=== PATIENT | male | born 1975 | race American Indian/Alaskan Native ===

== ENCOUNTER 2019-09-06 02:22 | Emergency (ER) | payer SELFPAY ==
[2019-09-06] MEDS ORDERED: IBUPROFEN 600 MG TAB PO ONE (03:23)
[2019-09-06] MEDS ORDERED: CYCLOBENZAPRINE 10 MG TAB PO ONE (03:23)
--- NOTE | 2019-09-06 03:34 | Emergency Department Report ---
ED General Adult HPI - General Chief complaint: Dyspnea/Respdistress Stated complaint: RIA Source: patient, EMS Mode of arrival: Ambulatory Limitations: No Limitations - History of Present Illness Initial comments: Patient is a 43-year-old -L[place] male with a history of hypertension, migraine headaches, asthma and chronic low back pain who presents to the ED with complaint of acute exacerbation of his chronic low back pain for the last 2 days worse in the last 6 hours. Patient states that the pain is sharp, constant and is worse with any activity. Patient also states that the pain does not radiate to his lower extremities bilaterally. Patient states that he has not taken any medications prior to arrival in the ED. Patient denies dizziness, syncope, chest pain, shortness of breath, heavy lifting, fall, hematuria, dysuria, numbness and tingling or weakness of upper and lower extremities bilaterally, urinary or bowel incontinence or saddle paresthesia. MD Complaint: Low back pain -: Sudden, days(s) (2) Location: back (lower) Radiation: non-radiation Severity scale (0 -10): 7 Quality: aching, sharp Consistency: constant Improves with: none Worsens with: movement Associated Symptoms: denies other symptoms. denies: confusion, fever/chills, headaches, malaise, nausea/vomiting, shortness of breath Treatments Prior to Arrival: none - Related Data Home Medications Medication Instructions Recorded Confirmed Last Taken Albuterol Sulfate [Albuterol 0.63%] 0.63 mg IH TID PRN 01/23/13 01/23/13 12/16/12 Previous Rx's Medication Instructions Recorded Last Taken Type Albuterol Sulfate [Ventolin HFA] 2 puff IH Q4H PRN #1 hfa.aer.ad 01/23/13 Unknown Rx Azithromycin [Zithromax Z-LUCIA] 250 mg PO DAILY #6 tab 01/23/13 Unknown Rx Hydrocodone Bit/Homatrop Me-Br 5 ml PO Q4H PRN #80 ml 01/23/13 Unknown Rx [Hydrocodone-Homatropine Syr 5-1.5 mg/5ml] Prednisone 60 mg PO QDAY #15 tablet 01/23/13 Unknown Rx Cyclobenzaprine [Flexeril] 10 mg PO Q8H PRN #21 tablet 09/06/19 Unknown Rx Ibuprofen [Motrin] 800 mg PO Q8HR PRN #30 tablet 09/06/19 Unknown Rx Allergies Allergy/AdvReac Type Severity Reaction Status Date / Time acetaminophen [From Tylenol] Allergy Rash Verified 09/06/19 02:27 latex Allergy Rash Verified 09/06/19 02:27 Penicillins Allergy Rash Verified 01/23/13 06:03 shellfish derived Allergy Unknown Verified 09/06/19 02:27 shrimp Allergy Vomiting Uncoded 01/23/13 06:03 ED Review of Systems ROS: Stated complaint: RIA Other details as noted in HPI Constitutional: denies: chills, fever Eyes: denies: eye pain, eye discharge, vision change ENT: denies: ear pain, throat pain Respiratory: denies: cough, shortness of breath, wheezing Cardiovascular: denies: chest pain, palpitations Endocrine: no symptoms reported Gastrointestinal: denies: abdominal pain, nausea, diarrhea Genitourinary: denies: urgency, dysuria Musculoskeletal: back pain (lower back). denies: joint swelling, arthralgia Skin: denies: rash, lesions Neurological: denies: headache, weakness, paresthesias Psychiatric: denies: anxiety, depression Hematological/Lymphatic: denies: easy bleeding, easy bruising ED Past Medical Hx - Past Medical History Previous Medical History?: Yes Hx Hypertension: Yes Hx Headaches / Migraines: Yes Hx Asthma: Yes - Surgical History Past Surgical History?: No - Social History Smoking Status: Never Smoker Substance Use Type: None - Medications Home Medications: Home Medications Medication Instructions Recorded Confirmed Last Taken Type Albuterol Sulfate [Albuterol 0.63%] 0.63 mg IH TID PRN 01/23/13 01/23/13 12/16/12 History Albuterol Sulfate [Ventolin HFA] 2 puff IH Q4H PRN #1 hfa.aer.ad 01/23/13 Unknown Rx Azithromycin [Zithromax Z-LUCIA] 250 mg PO DAILY #6 tab 01/23/13 Unknown Rx Hydrocodone Bit/H[place] Me-Br 5 ml PO Q4H PRN #80 ml 01/23/13 Unknown Rx [Hydrocodone-Homatropine Syr 5-1.5 mg/5ml] Prednisone 60 mg PO QDAY #15 tablet 01/23/13 Unknown Rx Cyclobenzaprine [Flexeril] 10 mg PO Q8H PRN #21 tablet 09/06/19 Unknown Rx Ibuprofen [Motrin] 800 mg PO Q8HR PRN #30 tablet 09/06/19 Unknown Rx ED Physical Exam - General Limitations: No Limitations General appearance: alert, in no apparent distress - Head Head exam: Present: atraumatic, normocephalic, normal inspection - Eye Eye exam: Present: normal appearance, PERRL, EOMI Pupils: Present: normal accommodation - ENT ENT exam: Present: normal exam, normal orophraynx, mucous membranes moist, TM's normal bilaterally, normal external ear exam - Neck Neck exam: Present: normal inspection, full ROM - Respiratory Respiratory exam: Present: normal lung sounds bilaterally. Absent: respiratory distress, wheezes, chest wall tenderness, accessory muscle use - Cardiovascular Cardiovascular Exam: Present: regular rate, normal rhythm, normal heart sounds. Absent: systolic murmur, diastolic murmur, rubs, gallop - GI/Abdominal GI/Abdominal exam: Present: soft, normal bowel sounds. Absent: tenderness, guarding, hyperactive bowel sounds, hypoactive bowel sounds - Extremities Exam Extremities exam: Present: normal inspection, full ROM, normal capillary refill - Back Exam Back exam: Present: normal inspection, full ROM, tenderness (Palpable lumbosacral paraspinal musculoskeletal tenderness), muscle spasm, paraspinal tenderness. Absent: CVA tenderness (L) - Neurological Exam Neurological exam: Present: alert, oriented X3, CN II-XII intact, normal gait, reflexes normal - Psychiatric Psychiatric exam: Present: normal affect, normal mood - Skin Skin exam: Present: warm, dry, intact, normal color. Absent: rash ED Course Vital Signs 09/06/19 02:23 Temperature 97.7 F Pulse Rate 89 Respiratory 18 Rate Blood Pressure 104/60 O2 Sat by Pulse 99 Oximetry ED Medical Decision Making - Medical Decision Making This is a 43-year-old -[place] male with a history of hypertension, migraine headaches, asthma and chronic low back pain who presents to the ED with complaint of acute exacerbation of his chronic low back pain for the last 2 days worse in the last 6 hours. Patient states that the pain is sharp, constant and is worse with any activity. Patient also states that the pain does not radiate to his lower extremities bilaterally. Patient states that he has not taken any medications prior to arrival in the ED. In the ED, patient is alert and oriented x3 and is not in distress. Patient listening to music in the room and in no distress. Patient was treated for pain in the ED with ibuprofen, and was discharged home on a prescription for ibuprofen and was advised to follow-up with his primary care physician in 5 to 7 days for reevaluation or return to the ED immediately if symptoms get worse. - Differential Diagnosis chronic back pain; Muscle spasm; Muscle strain Critical care attestation.: If time is entered above; I have spent that time in minutes in the direct care of this critically ill patient, excluding procedure time. ED Disposition Clinical Impression: Acute exacerbation of chronic low back pain, Spasm of muscle of lower back Disposition: - TO HOME OR SELFCARE Is pt being admited?: No Does the pt Need Aspirin: No Condition: Stable Instructions: Muscle Spasm (ED), Chronic Back Pain (ED) Additional Instructions: Take medication with food, drink plenty of fluids and follow-up with your primary care physician in 5 to 7 days for reevaluation. Return to the ED immediately if symptoms get worse. Prescriptions: Cyclobenzaprine [Flexeril] 10 mg PO Q8H PRN #21 tablet PRN Reason: Muscle Spasm Ibuprofen [Motrin] 800 mg PO Q8HR PRN #30 tablet PRN Reason: Pain , Severe (7-10) Referrals: [facility] [Provider Group] - 3-5 Days Time of Disposition: 03:38 Print Language: EQUATORIAL GUINEAN
[2019-09-06 04:34] VITALS: BP 122/53
== END 2019-09-06 03:55 | disposition home or self-care (01) ==
LOC: ED 02:22
DX: M62.830 Muscle spasm of back (principal); I10 Essential (primary) hypertension; J45.909 Unspecified asthma, uncomplicated; G43.909 Migraine, unspecified, not intractable, without status migrainosus; Z88.0 Allergy status to penicillin; Z88.6 Allergy status to analgesic agent; Z91.013 Allergy to seafood

== ENCOUNTER 2020-02-03 02:10 | Emergency (ER) | payer SELFPAY ==
[2020-02-03 02:27] VITALS: BP 107/74
--- NOTE | 2020-02-03 06:07 | Emergency Department Report ---
ED Back Pain/Injury HPI - General Chief Complaint: Back Pain/Injury Stated Complaint: BACK PAIN Time Seen by Provider: 02/03/20 06:01 Source: patient Limitations: No Limitations - History of Present Illness Initial Comments: Patient 44-year-old male who presents for bilateral low back pain times yesterday. Patient states he woke up with back pain. Denies fall injury or trauma. Pain pain is described as aching soreness exacerbated by bending and twisting. There is no numbness or tingling. No loss or decrease in bowel or bladder function. Patient remains amatory with steady gait Complaint: back pain, back injury - Related Data Home Medications Medication Instructions Recorded Confirmed Last Taken Albuterol Sulfate [Albuterol 0.63%] 0.63 mg IH TID PRN 01/23/13 01/23/13 12/16/12 Previous Rx's Medication Instructions Recorded Last Taken Type Albuterol Sulfate [Ventolin HFA] 2 puff IH Q4H PRN #1 hfa.aer.ad 01/23/13 Unknown Rx Azithromycin [Zithromax Z-LUCIA] 250 mg PO DAILY #6 tab 01/23/13 Unknown Rx Hydrocodone Bit/Homatrop Me-Br 5 ml PO Q4H PRN #80 ml 01/23/13 Unknown Rx [Hydrocodone-Homatropine Syr 5-1.5 mg/5ml] Prednisone 60 mg PO QDAY #15 tablet 01/23/13 Unknown Rx Cyclobenzaprine [Flexeril] 10 mg PO Q8H PRN #21 tablet 09/06/19 Unknown Rx Ibuprofen [Motrin] 800 mg PO Q8HR PRN #30 tablet 09/06/19 Unknown Rx Cyclobenzaprine [Flexeril] 10 mg PO TID PRN #30 tab 02/03/20 Unknown Rx Menthol/Camphor [[place] 1 applicatio TP QID PRN #1 tube 02/03/20 Unknown Rx Ointment] Naproxen 500 mg PO BID PRN #30 tablet 02/03/20 Unknown Rx Allergies Allergy/AdvReac Type Severity Reaction Status Date / Time acetaminophen [From Tylenol] Allergy Rash Verified 09/06/19 02:27 latex Allergy Rash Verified 09/06/19 02:27 Penicillins Allergy Rash Verified 01/23/13 06:03 shellfish derived Allergy Unknown Verified 09/06/19 02:27 shrimp Allergy Vomiting Uncoded 01/23/13 06:03 ED Review of Systems ROS: Stated complaint: BACK PAIN Other details as noted in HPI Constitutional: denies: chills, fever Eyes: denies: eye pain, eye discharge, vision change ENT: denies: ear pain, throat pain Respiratory: denies: cough, shortness of breath, wheezing Cardiovascular: as per HPI Endocrine: no symptoms reported Gastrointestinal: denies: abdominal pain, nausea, diarrhea Genitourinary: denies: urgency, dysuria Musculoskeletal: back pain, arthralgia Skin: denies: rash, lesions Neurological: denies: headache, weakness, paresthesias Psychiatric: as per HPI Hematological/Lymphatic: denies: easy bleeding, easy bruising ED Past Medical Hx - Past Medical History Previous Medical History?: Yes Hx Hypertension: Yes Hx Headaches / Migraines: Yes Hx Asthma: Yes - Surgical History Past Surgical History?: No - Social History Smoking Status: Never Smoker Substance Use Type: None - Medications Home Medications: Home Medications Medication Instructions Recorded Confirmed Last Taken Type Albuterol Sulfate [Albuterol 0.63%] 0.63 mg IH TID PRN 01/23/13 01/23/13 12/16/12 History Albuterol Sulfate [Ventolin HFA] 2 puff IH Q4H PRN #1 hfa.aer.ad 01/23/13 Unknown Rx Azithromycin [Zithromax Z-LUCIA] 250 mg PO DAILY #6 tab 01/23/13 Unknown Rx Hydrocodone Bit/Homatrop Me-Br 5 ml PO Q4H PRN #80 ml 01/23/13 Unknown Rx [Hydrocodone-Homatropine Syr 5-1.5 mg/5ml] Prednisone 60 mg PO QDAY #15 tablet 01/23/13 Unknown Rx Cyclobenzaprine [Flexeril] 10 mg PO Q8H PRN #21 tablet 09/06/19 Unknown Rx Ibuprofen [Motrin] 800 mg PO Q8HR PRN #30 tablet 09/06/19 Unknown Rx Cyclobenzaprine [Flexeril] 10 mg PO TID PRN #30 tab 02/03/20 Unknown Rx Menthol/Camphor [[place] 1 applicatio TP QID PRN #1 tube 02/03/20 Unknown Rx Ointment] Naproxen 500 mg PO BID PRN #30 tablet 02/03/20 Unknown Rx ED Physical Exam - General Limitations: No Limitations General appearance: alert, in no apparent distress - Head Head exam: Present: atraumatic, normocephalic - Eye Eye exam: Present: normal appearance, EOMI Pupils: Present: normal accommodation - ENT ENT exam: Present: normal exam - Neck Neck exam: Present: normal inspection. Absent: tenderness - Respiratory Respiratory exam: Present: normal lung sounds bilaterally. Absent: respiratory distress, wheezes, stridor - Cardiovascular Cardiovascular Exam: Present: regular rate, normal rhythm, normal heart sounds. Absent: systolic murmur, diastolic murmur, rubs, gallop - GI/Abdominal GI/Abdominal exam: Present: soft, normal bowel sounds. Absent: distended, tenderness, guarding, rebound, rigid, bruit, hernia - Rectal Rectal exam: Present: deferred - Extremities Exam Extremities exam: Present: normal inspection, full ROM. Absent: tenderness - Back Exam Back exam: Present: normal inspection, full ROM, tenderness, muscle spasm, paraspinal tenderness. Absent: CVA tenderness (R), CVA tenderness (L), vertebral tenderness - Neurological Exam Neurological exam: Present: alert, oriented X3, CN II-XII intact, normal gait, reflexes normal. Absent: motor sensory deficit - Expanded Neurological Exam Expanded Patient oriented to: Present: person, place, time Speech: Present: fluid speech Motor strength exam: RUE: 5, LUE: 5, RLE: 5, LLE: 5 DTR: ankle (R): 2+, ankle (L): 2+ Best Eye Response ([place]): (4) open spontaneously Best Motor Response ([place]): (6) obeys commands Best Verbal Response ([place]): (5) oriented [place] Total: 15 - Psychiatric Psychiatric exam: Present: normal affect, normal mood - Skin Skin exam: Present: warm, dry, intact, normal color. Absent: rash ED Course Vital Signs 02/03/20 02:25 Temperature 98.3 F Pulse Rate 78 Respiratory 18 Rate Blood Pressure 107/74 O2 Sat by Pulse 96 Oximetry ED Medical Decision Making - Medical Decision Making This is a low back strain. There are no neuro deficits, there has been no fall injury or trauma, there is no dysuria frequency or hematuria, no history of renal stones. This is exacerbation of a previous back injury. Plan NSAIDs and muscle relaxants analgesic balm follow-up with primary care doctor in 2 to 3 days. Patient verbalized agreement and understanding with discharge plan. Patient DC'd home in stable condition at this time. Critical care attestation.: If time is entered above; I have spent that time in minutes in the direct care of this critically ill patient, excluding procedure time. ED Disposition Clinical Impression: Low back strain Qualifiers: Encounter type: subsequent encounter Qualified Code(s): S39.012D - Strain of muscle, fascia and tendon of lower back, subsequent encounter Disposition: DC-01 TO HOME OR SELFCARE Is pt being admited?: No Does the pt Need Aspirin: No Condition: Stable Instructions: Muscle Strain (ED), Low Back Strain (ED), Core Strengthening Exercises (GEN) Prescriptions: Cyclobenzaprine [Flexeril] 10 mg PO TID PRN #30 tab PRN Reason: Muscle Spasm Naproxen 500 mg PO BID PRN #30 tablet PRN Reason: pain Menthol/Camphor [[place] Ointment] 1 applicatio TP QID PRN #1 tube PRN Reason: pain Referrals: TATA YEAGER MD [Referring] - 3-5 Days Forms: Work/School Release Form(ED) Time of Disposition: 06:11
== END 2020-02-03 06:17 | disposition home or self-care (01) ==
LOC: ED 02:10
DX: S39.012D Strain of muscle, fascia and tendon of lower back, subsequent encounter (principal); J45.909 Unspecified asthma, uncomplicated; G43.909 Migraine, unspecified, not intractable, without status migrainosus; I10 Essential (primary) hypertension; Z91.013 Allergy to seafood; Z88.0 Allergy status to penicillin; Z88.6 Allergy status to analgesic agent; Z79.899 Other long term (current) drug therapy; Z91.041 Radiographic dye allergy status; Y92.89 Other specified places as the place of occurrence of the external cause
CPT/HCPCS: 99283

== ENCOUNTER 2020-04-09 21:49 | Emergency (ER) | payer SELFPAY ==
[2020-04-10] MEDS ORDERED: ONDANSETRON 4 MG/2 ML INJ IV ONE (03:18)
[2020-04-10] MEDS ORDERED: KETOROLAC 30 MG/1 ML INJ IV ONE (03:18)
[2020-04-10] MEDS ORDERED: SODIUM CHLORIDE 0.9% 1000 ML 1,000 ML IV ONE (03:18)
[2020-04-10] MEDS ORDERED: dexAMETHasone 4 MG/ML VIAL IV ONE (03:19)
--- NOTE | 2020-04-10 03:23 | Emergency Department Report ---
ED General Adult HPI - General Chief complaint: Extremity Injury, Lower Stated complaint: ASTHMA/BACK PAIN Time Seen by Provider: 04/10/20 03:09 Source: patient Mode of arrival: Ambulatory Limitations: No Limitations - History of Present Illness Initial comments: Patient is a 44-year-old male presents emergency room complaints of lower back pain that began 4 days ago. He states that the pain radiates to his abdomen and he has generalized abdominal pain. He denies any fall or injury. 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 He denies any fever, nausea, vomiting, diarrhea, urinary symptoms, hematochezia, hematemesis, melena. He has a past medical history of asthma and seizures. He has an allergy to penicillin, Tylenol, latex, shellfish. - Related Data Home Medications Medication Instructions Recorded Confirmed Last Taken Albuterol Sulfate [Albuterol 0.63%] 0.63 mg IH TID PRN 01/23/13 01/23/13 12/16/12 Previous Rx's Medication Instructions Recorded Last Taken Type Albuterol Sulfate [Ventolin HFA] 2 puff IH Q4H PRN #1 hfa.aer.ad 01/23/13 U nknown Rx Azithromycin [Zithromax Z-LUCIA] 250 mg PO DAILY #6 tab 01/23/13 Unknown Rx Hydrocodone Bit/Homatrop Me-Br 5 ml PO Q4H PRN #80 ml 01/23/13 Unknown Rx [Hydrocodone-Homatropine Syr 5-1.5 mg/5ml] Prednisone 60 mg PO QDAY #15 tablet 01/23/13 Unknown Rx Cyclobenzaprine [Flexeril] 10 mg PO Q8H PRN #21 tablet 09/06/19 Unknown Rx Ibuprofen [Motrin] 800 mg PO Q8HR PRN #30 tablet 09/06/19 Unknown Rx Cyclobenzaprine [Flexeril] 10 mg PO TID PRN #30 tab 02/03/20 Unknown Rx Menthol/Camphor [[employer] [place] 1 applicatio TP QID PRN #1 tube 02/03/20 Unknown Rx Ointment] Naproxen 500 mg PO BID PRN #30 tablet 02/03/20 Unknown Rx Albuterol Sulfate [Proventil Hfa] 6.7 gm IH TID PRN #1 hfa.aer.ad 04/10/20 Unknown Rx Doxycycline Hyclate [Doxycycline 100 mg PO BID 7 Days #14 tab 04/10/20 Unknown Rx Hyclate TAB] Naproxen 500 mg PO BID PRN #20 tablet 04/10/20 Unknown Rx methOCARBAMOL [Robaxin TAB] 500 mg PO BID PRN #20 tab 04/10/20 Unknown Rx Allergies Allergy/AdvReac Type Severity Reaction Status Date / Time acetaminophen [From Tylenol] Allergy Rash Verified 09/06/19 02:27 latex Allergy Rash Verified 09/06/19 02:27 Penicillins Allergy Rash Verified 01/23/13 06:03 shellfish derived Allergy Unknown Verified 09/06/19 02:27 ketorolac [From Toradol] AdvReac Headache Verified 04/10/20 03:51 metoclopramide [From Reglan] AdvReac Headache Verified 04/10/20 03:51 shrimp Allergy Vomiting Uncoded 01/23/13 06:03 ED Review of Systems ROS: Stated complaint: ASTHMA/BACK PAIN Other details as noted in HPI Comment: All other systems reviewed and negative ED Past Medical Hx - Past Medical History Previous Medical History?: Yes Hx Hypertension: Yes Hx Headaches / Migraines: Yes Hx Asthma: Yes - Surgical History Past Surgical History?: No - Social History Smoking Status: Never Smoker Substance Use Type: None - Medications Home Medications: Home Medications Medication Instructions Recorded Confirmed Last Taken Type Albuterol Sulfate [Albuterol 0.63%] 0.63 mg IH TID PRN 01/23/13 01/23/13 12/16/12 History Albuterol Sulfate [Ventolin HFA] 2 puff IH Q4H PRN #1 hfa.aer.ad 01/23/13 Unknown Rx Azithromycin [Zithromax Z-LUCIA] 250 mg PO DAILY #6 tab 01/23/13 Unknown Rx Hydrocodone Bit/Homatrop Me-Br 5 ml PO Q4H PRN #80 ml 01/23/13 Unknown Rx [Hydrocodone-Homatropine Syr 5-1.5 mg/5ml] Prednisone 60 mg PO QDAY #15 tablet 01/23/13 Unknown Rx Cyclobenzaprine [Flexeril] 10 mg PO Q8H PRN #21 tablet 09/06/19 Unknown Rx Ibuprofen [Motrin] 800 mg PO Q8HR PRN #30 tablet 09/06/19 Unknown Rx Cyclobenzaprine [Flexeril] 10 mg PO TID PRN #30 tab 02/03/20 Unknown Rx Menthol/Camphor [[employer] [place] 1 applicatio TP QID PRN #1 tube 02/03/20 Unknown Rx Ointment] Naproxen 500 mg PO BID PRN #30 tablet 02/03/20 Unknown Rx Albuterol Sulfate [Proventil Hfa] 6.7 gm IH TID PRN #1 hfa.aer.ad 04/10/20 Unknown Rx Doxycycline Hyclate [Doxycycline 100 mg PO BID 7 Days #14 tab 04/10/20 Unknown Rx Hyclate TAB] Naproxen 500 mg PO BID PRN #20 tablet 04/10/20 Unknown Rx methOCARBAMOL [Robaxin TAB] 500 mg PO BID PRN #20 tab 04/10/20 Unknown Rx ED Physical Exam - General Limitations: No Limitations General appearance: alert, in no apparent distress - Head Head exam: Present: atraumatic, normocephalic - Eye Eye exam: Present: normal appearance - ENT ENT exam: Present: mucous membranes moist - Respiratory Respiratory exam: Present: normal lung sounds bilaterally. Absent: respiratory distress, wheezes, rales, rhonchi, stridor, chest wall tenderness, accessory m uscle use, decreased breath sounds, prolonged expiratory - Cardiovascular Cardiovascular Exam: Present: regular rate, normal rhythm, normal heart sounds. Absent: systolic murmur, diastolic murmur, rubs, gallop - GI/Abdominal GI/Abdominal exam: Present: soft, tenderness (generalized upper abd ttp), normal bowel sounds. Absent: distended, guarding, rebound, rigid - Back Exam Back exam: Present: normal inspection, full ROM. Absent: CVA tenderness (R), CVA tenderness (L), paraspinal tenderness, vertebral tenderness - Neurological Exam Neurological exam: Present: alert, oriented X3 - Psychiatric Psychiatric exam: Present: normal affect, normal mood - Skin Skin exam: Present: warm, dry, intact ED Course Vital Signs 04/09/20 22:57 Temperature 98.0 F Pulse Rate 101 H Respiratory 17 Rate Blood Pressure 160/76 O2 Sat by Pulse 96 Oximetry ED Medical Decision Making - Lab Data Result diagrams: 04/10/20 03:35 04/10/20 03:35 Lab Results 04/10/20 04/10/20 04/10/20 Range/Units 03:35 03:35 04:38 WBC 5.7 (4.5-11.0) K/mm3 RBC 4.94 (3.65-5.03) M/mm3 Hgb 13.6 (11.8-15.2) gm/dl Hct 41.2 (35.5-45.6) % MCV 84 (84-94) fl MCH 28 (28-32) pg MCHC 33 (32-34) % RDW 15.2 (13.2-15.2) % Plt Count 174 (140-440) K/mm3 Lymph % (Auto) 32.7 (13.4-35.0) % [place] % (Auto) 13.8 H (0.0-7.3) % Eos % (Auto) 7.5 H (0.0-4.3) % Baso % (Auto) 0.6 (0.0-1.8) % Lymph # (Auto) 1.9 (1.2-5.4) K/mm3 [place] # (Auto) 0.8 (0.0-0.8) K/mm3 Eos # (Auto) 0.4 (0.0-0.4) K/mm3 Baso # (Auto) 0.0 (0.0-0.1) K/mm3 Seg Neutrophils % 45.4 (40.0-70.0) % Seg Neutrophils # 2.6 (1.8-7.7) K/mm3 Sodium 136 L (137-145) mmol/L Potassium 3.9 (3.6-5.0) mmol/L Chloride 106.0 (98-107) mmol/L Carbon Dioxide 25 (22-30) mmol/L Anion Gap 9 mmol/L BUN 11 (9-20) mg/dL Creatinine 0.8 (0.8-1.3) mg/dL Estimated GFR > 60 ml/min BUN/Creatinine Ratio 14 % Glucose 102 H (75-100) mg/dL Calcium 8.3 L (8.4-10.2) mg/dL Total Bilirubin 0.30 (0.1-1.2) mg/dL AST 12 (5-40) units/L ALT 14 (7-56) units/L Alkaline Phosphatase 141 H (35-129) units/L Total Protein 5.8 L (6.3-8.2) g/dL Albumin 3.5 L (3.9-5) g/dL Albumin/Globulin Ratio 1.5 % Lipase 14 (13-60) units/L Urine Color Yellow (Yellow) Urine Turbidity Clear (Clear) Urine pH 5.0 (5.0-7.0) Ur Specific [place] 1.024 (1.003-1.030) Urine Protein <15 mg/dl (Negative) mg/dL Urine Glucose (UA) Neg (Negative) mg/dL Urine Ketones Neg (Negative) mg/dL Urine Blood Neg (Negative) Urine Nitrite Neg (Negative) Urine Bilirubin Neg (Negative) Urine Urobilinogen 4.0 (<2.0) mg/dL Ur Leukocyte Esterase Mod (Negative) Urine WBC (Auto) 57.0 H (0.0-6.0) /HPF Urine RBC (Auto) 4.0 (0.0-6.0) /HPF U Epithel Cells (Auto) 2.0 (0-13.0) /HPF Urine Bacteria (Auto) 1+ (Negative) /HPF Hyaline Casts 2 /LPF Urine Mucus Few /HPF - Radiology Data Radiology results: report reviewed Ordering Physician: AMARI MARTIN Date of Service: 04/10/20 Procedure(s): CT abdomen pelvis w con Accession Number(s): [id number] cc: AMARI MARTIN CT abdomen pelvis w con INDICATION: Pt complains of lower back pain with "Generalized" abd pain x 4 days.. COMPARISON: None TECHNIQUE: Abdominal and pelvic CT exam performed. All CT scans at this location are performed using CT dose reduction for ALARA by means of automated exposure control. FINDINGS: CT ABDOMEN and PELVIS: Lung Bases: No significant abnormality. Liver: No significant abnormality. Biliary: No significant abnormality. Spleen: No significant abnormality. Pancreas: No significant abnormality. Adrenals: No significant abnormality. Kidneys: No significant abnormality. Lymphatics: No lymphadenopathy. Vasculature: No significant abnormality. Bowel: No significant abnormality. Normal appendix. Pelvis: No significant abnormality. Osseous Structures: No aggressive osseous lesion. Additional Findings: None IMPRESSION: 1. No significant abnormality of the abdomen or pelvis. Signer Name: Keven Rojas MD Signed: 04/10/2020 5:06 AM Workstation Name: [id number] Transcribed By: JOSSIE Dictated By: Keven Rojas MD Electronically Authenticated By: Keven Rojas MD Signed Date/Time: 04/10/20505 DD/ 3 TD/TT: - Medical Decision Making Patient is a 44-year-old male presents emergency room complaints of lower back pain that began 4 days ago. He states that the pain radiates to his abdomen and he has generalized abdominal pain. He denies any fall or injury. 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 He denies any fever, nausea, vomiting, diarrhea, urinary symptoms, hematochezia, hematemesis, melena. He has a past medical history of asthma and seizures. He has an allergy to penicillin, Tylenol, latex, shellfish. VSS. on exam: Generalized upper abdominal tenderness on exam, no guarding, no rebound, no rigidity, no peritoneal signs, normal bowel sounds, no midline or paraspinal C-spine, T-spine, L-spine tenderness palpation, no step-offs, no deformities, no focal neuro deficits. Labs with mild elevation of alk phos, otherwise. UA shows evidence of UTI with white blood cells and moderate leukocyte esterase, patient given 1 g ceftriaxone while in the ED. CT abdomen pelvis with IV contrast 1. No significant abnormality of the abdomen or pelvis. Patient given medications while in the emergency department and symptoms improved and he was feeling much better and ready to go home. Patient is requesting a refill of his albuterol inhaler for his chronic asthma, he has no wheezing on exam, no signs of acute asthma exacerbation today. advised pt Please take medication as prescribed. Do not drive or operate machinery while taking muscle relaxer. Increase your water intake over the next several days. May use ice pack, heating pad, rest, and epsom salt bath. Follow-up with your primary care doctor and have your urine retested for clearance of bacteria. Return to emergency room for any new or worsening symptoms. - Differential Diagnosis Bulging disc, DDD, sciatica, colitis, diverticulitis, UTI, nephrolithiasis Critical care attestation.: If time is entered above; I have spent that time in minutes in the direct care of this critically ill patient, excluding procedure time. ED Disposition Clinical Impression: Back pain Qualifiers: Back pain location: low back pain Chronicity: acute Back pain laterality: bilateral Sciatica presence: without sciatica Qualified Code(s): M54.5 - Low back pain Abdominal pain Qualifiers: Abdominal location: generalized Qualified Code(s): R10.84 - Generalized abdominal pain UTI (urinary tract infection) Qualifiers: Urinary tract infection type: site unspecified Hematuria presence: without hematuria Qualified Code(s): N39.0 - Urinary tract infection, site not specified Disposition: TO HOME OR SELFCARE Is pt being admited?: No Does the pt Need Aspirin: No Condition: Stable Instructions: Urinary Tract Infection, Adult Additional Instructions: Please take medication as prescribed. Do not drive or operate machinery while taking muscle relaxer. Increase your water intake over the next several days. May use ice pack, heating pad, rest, and epsom salt bath. Follow-up with your primary care doctor and have your urine retested for clearance of bacteria. Return to emergency room for any new or worsening symptoms. Prescriptions: Doxycycline Hyclate [Doxycycline Hyclate TAB] 100 mg PO BID 7 Days #14 tab Naproxen 500 mg PO BID PRN #20 tablet PRN Reason: pain Albuterol Sulfate [Proventil Hfa] 6.7 gm IH TID PRN #1 hfa.aer.ad PRN Reason: Wheezing methOCARBAMOL [Robaxin TAB] 500 mg PO BID PRN #20 tab PRN Reason: pain Referrals: PRIMARY CAREMD [Primary Care Provider] - 3-5 Days CORRY STAHL MD [Staff Physician] - 3-5 Days [facility] [Provider Group] - 3-5 Days [facility], [LAB/CONTRACT] - 3-5 Days Time of Disposition: 05:14 Print Language: ALBANIAN
[2020-04-10 03:53] LABS: Basophils % (Auto) 0.6 % (0.0-1.8); Eosinophils # (Auto) 0.4 K/mm3 (0.0-0.4); Eosinophils % (Auto) 7.5 % (0.0-4.3); Hematocrit 41.2 % (35.5-45.6); Hemoglobin 13.6 gm/dl (11.8-15.2); Lymphocytes # (Auto) 1.9 K/mm3 (1.2-5.4); Lymphocytes % (Auto) 32.7 % (13.4-35.0); Mean Corpuscular HGB Conc 33 % (32-34); Mean Corpuscular Volume 84 fl (84-94); Monocytes # (Auto) 0.8 K/mm3 (0.0-0.8); Monocytes % (Auto) 13.8 % (0.0-7.3); Platelet Count 174 K/mm3 (140-440); Red Blood Count 4.94 M/mm3 (3.65-5.03); Red Cell Distribution Width 15.2 % (13.2-15.2)
[2020-04-10] MEDS ORDERED: IBUPROFEN 800 MG TAB PO ONE (03:55)
[2020-04-10] MEDS: fentaNYL 100 MCG/2 ML INJ IV ONE ×2 (04:07→04:20)
[2020-04-10 04:14] LABS: Alanine Aminotransferase 14 units/L (7-56); Albumin 3.5 g/dL (3.9-5); BUN/Creatinine Ratio 14; Blood Urea Nitrogen 11 mg/dL (9-20); Calcium 8.3 mg/dL (8.4-10.2); Hemolysis Index 8
[2020-04-10 04:52] LABS: Bacteria,Urine 1+ /HPF (Negative); Bilirubin,Urine NEG (Negative); Blood,Urine NEG (Negative); Color,Urine Yellow (Yellow); Hyaline Casts,Urine 2 /LPF; Mucus,Urine FEW /HPF; Protein,Urine <15 mg/dL mg/dL (Negative)
[2020-04-10] MEDS ORDERED: cefTRIAXone/NS 1 GM/50 ML 1 GM/50 ML BAG IV ONE (04:59)
--- NOTE | 2020-04-10 05:10 | Cat Scan Report ---
CT abdomen pelvis w con INDICATION: Pt complains of lower back pain with "Generalized" abd pain x 4 days.. COMPARISON: None TECHNIQUE: Abdominal and pelvic CT exam performed. All CT scans at this location are performed using CT dose reduction for ALARA by means of automated exposure control. FINDINGS: CT ABDOMEN and PELVIS: Lung Bases: No significant abnormality. Liver: No significant abnormality. Biliary: No significant abnormality. Spleen: No significant abnormality. Pancreas: No significant abnormality. Adrenals: No significant abnormality. Kidneys: No significant abnormality. Lymphatics: No lymphadenopathy. Vasculature: No significant abnormality. Bowel: No significant abnormality. Normal appendix. Pelvis: No significant abnormality. Osseous Structures: No aggressive osseous lesion. Additional Findings: None IMPRESSION: 1. No significant abnormality of the abdomen or pelvis. Signer Name: Keven Rojas MD Signed: 04/10/2020 5:06 AM Workstation Name: [id number]
[2020-04-10 06:24] VITALS: BP 128/78
== END 2020-04-10 06:22 | disposition home or self-care (01) ==
LOC: ED 21:49
DX: I10 Essential (primary) hypertension (principal); G43.909 Migraine, unspecified, not intractable, without status migrainosus; J45.909 Unspecified asthma, uncomplicated; Z79.899 Other long term (current) drug therapy; Z88.0 Allergy status to penicillin; Z91.013 Allergy to seafood; Z91.040 Latex allergy status; Z88.8 Allergy status to other drugs, medicaments and biological substances
CPT/HCPCS: 36415; 74177; 80053; 81001; 83690; 85025; 87086; 96361; 96365; 96375; 99284; J0696; J1100; J2405; J3010; J7030; Q9967

== ENCOUNTER 2020-07-22 05:38 | Emergency (ER) | payer SELFPAY ==
[2020-07-22] MEDS ORDERED: IPRATROPIUM/ALBUTEROL SULFATE 3 ML AMPUL.NEB IH ONE (06:14)
--- NOTE | 2020-07-22 06:42 | XRay Report ---
CHEST 1 VIEW INDICATION: dyspnea. COMPARISON: None FINDINGS: SUPPORT DEVICES: None. HEART: Within normal limits. LUNGS/PLEURA: No acute air space or interstitial disease. ADDITIONAL FINDINGS: None. IMPRESSION: 1. No acute findings. Signer Name: Payam Perez MD Signed: 07/22/2020 6:37 AM Workstation Name: [id number]
--- NOTE | 2020-07-22 07:04 | Emergency Department Report ---
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 Patient denies chest pain, denies fever, denies cough, denies calf pain or swelling. Patient states he feels somewhat improved from onset of symptoms, however, still feels "a little wheezy." - Related Data Home Medications Medication Instructions Recorded Confirmed Last Taken Albuterol Sulfate [Albuterol 0.63%] 0.63 mg IH TID PRN 01/23/13 01/23/13 12/16/12 Previous Rx's Medication Instructions Recorded Last Taken Type Albuterol Sulfate [Ventolin HFA] 2 puff IH Q4H PRN #1 hfa.aer.ad 01/23/13 Unknown Rx Azithromycin [Zithromax Z-LUCIA] 250 mg PO DAILY #6 tab 01/23/13 Unknown Rx Hydrocodone Bit/Homatrop Me-Br 5 ml PO Q4H PRN #80 ml 01/23/13 Unknown Rx [Hydrocodone-Homatropine Syr 5-1.5 mg/5ml] Prednisone 60 mg PO QDAY #15 tablet 01/23/13 Unknown Rx Cyclobenzaprine [Flexeril] 10 mg PO Q8H PRN #21 tablet 09/06/19 Unknown Rx Ibuprofen [Motrin] 800 mg PO Q8HR PRN #30 tablet 09/06/19 Unknown Rx Cyclobenzaprine [Flexeril] 10 mg PO TID PRN #30 tab 02/03/20 Unknown Rx Menthol/Camphor [[place] 1 applicatio TP QID PRN #1 tube 02/03/20 Unknown Rx Ointment] Naproxen 500 mg PO BID PRN #30 tablet 02/03/20 Unknown Rx Doxycycline Hyclate [Doxycycline 100 mg PO BID 7 Days #14 tab 04/10/20 Unknown Rx Hyclate TAB] Naproxen 500 mg PO BID PRN #20 tablet 04/10/20 Unknown Rx methOCARBAMOL [Robaxin TAB] 500 mg PO BID PRN #20 tab 04/10/20 Unknown Rx Albuterol Sulfate [Proventil Hfa] 6.7 gm IH TID PRN #1 hfa.aer.ad 07/22/20 Unknown Rx Allergies Allergy/AdvReac Type Severity Reaction Status Date / Time acetaminophen [From Tylenol] Allergy Rash Verified 09/06/19 02:27 aspirin Allergy Unknown Verified 07/22/20 05:45 latex Allergy Rash Verified 09/06/19 02:27 methylprednisolone Allergy Unknown Verified 07/22/20 05:45 [From Solu-Medrol] Penicillins Allergy Rash Verified 01/23/13 06:03 shellfish derived Allergy Unknown Verified 09/06/19 02:27 ketorolac [From Toradol] AdvReac Headache Verified 04/10/20 03:51 metoclopramide [From Reglan] AdvReac Headache Verified 04/10/20 03:51 shrimp Allergy Vomiting Uncoded 01/23/13 06:03 ED Review of Systems ROS: Stated complaint: RIA Other details as noted in HPI Comment: All other systems reviewed and negative ED Past Medical Hx - Past Medical History Hx Hypertension: Yes Hx Headaches / Migraines: Yes Hx Asthma: Yes - Social History Smoking Status: Never Smoker Substance Use Type: None - Medications Home Medications: Home Medications Medication Instructions Recorded Confirmed Last Taken Type Albuterol Sulfate [Albuterol 0.63%] 0.63 mg IH TID PRN 01/23/13 01/23/13 12/16/12 History Albuterol Sulfate [Ventolin HFA] 2 puff IH Q4H PRN #1 hfa.aer.ad 01/23/13 Unknown Rx Azithromycin [Zithromax Z-LUCIA] 250 mg PO DAILY #6 tab 01/23/13 Unknown Rx Hydrocodone Bit/Homatrop Me-Br 5 ml PO Q4H PRN #80 ml 01/23/13 Unknown Rx [Hydrocodone-Homatropine Syr 5-1.5 mg/5ml] Prednisone 60 mg PO QDAY #15 tablet 01/23/13 Unknown Rx Cyclobenzaprine [Flexeril] 10 mg PO Q8H PRN #21 tablet 09/06/19 Unknown Rx Ibuprofen [Motrin] 800 mg PO Q8HR PRN #30 tablet 09/06/19 Unknown Rx Cyclobenzaprine [Flexeril] 10 mg PO TID PRN #30 tab 02/03/20 Unknown Rx Menthol/Camphor [[place] 1 applicatio TP QID PRN #1 tube 02/03/20 Unknown Rx Ointment] Naproxen 500 mg PO BID PRN #30 tablet 02/03/20 Unknown Rx Doxycycline Hyclate [Doxycycline 100 mg PO BID 7 Days #14 tab 04/10/20 Unknown Rx Hyclate TAB] Naproxen 500 mg PO BID PRN #20 tablet 04/10/20 Unknown Rx methOCARBAMOL [Robaxin TAB] 500 mg PO BID PRN #20 tab 04/10/20 Unknown Rx Albuterol Sulfate [Proventil Hfa] 6.7 gm IH TID PRN #1 hfa.aer.ad 07/22/20 Unknown Rx ED Physical Exam - General Limitations: No Limitations General appearance: alert, in no apparent distress - Head Head exam: Present: atraumatic, normocephalic - Eye Eye exam: Present: normal appearance - ENT ENT exam: Present: mucous membranes moist - Neck Neck exam: Present: normal inspection - Respiratory Respiratory exam: Present: wheezes. Absent: respiratory distress - Cardiovascular Cardiovascular Exam: Present: regular rate, normal rhythm. Absent: systolic murmur, diastolic murmur, rubs, gallop - GI/Abdominal GI/Abdominal exam: Present: soft, normal bowel sounds - Rectal Rectal exam: Present: deferred - Extremities Exam Extremities exam: Present: normal inspection - Back Exam Back exam: Present: normal inspection - Neurological Exam Neurological exam: Present: alert, oriented X3 - Psychiatric Psychiatric exam: Present: normal affect, normal mood - Skin Skin exam: Present: warm, dry, intact, normal color. Absent: rash ED Course - Reevaluation(s) Reevaluation #1: 07/22/20 07:01 Patient treated with DuoNeb x1. On reevaluation, patient in no acute distress, breathing normally without accessory muscle use. Lungs now clear to auscultation bilaterally with resolution of wheezing appreciated initially. Patient offered further nebulizer treatments, declines stating he is breathing normally, requests albuterol inhaler for home, written as per prescription. 07/22/20 07:19 Repeat pulse 88, PERC 0/8 ED Medical Decision Making - Radiology Data Radiology results: report reviewed Chest x-ray negative per radiology Critical care attestation.: If time is entered above; I have spent that time in minutes in the direct care of this critically ill patient, excluding procedure time. ED Disposition Clinical Impression: Asthma exacerbation Disposition: DC-01 TO HOME OR SELFCARE Is pt being admited?: No Condition: Stable Instructions: Asthma, Adult Additional Instructions: Follow-up with primary care doctor in 1 to 2 days for reevaluation. Return to the emergency department for worsening symptoms. Prescriptions: Albuterol Sulfate [Proventil Hfa] 6.7 gm IH TID PRN #1 hfa.aer.ad PRN Reason: Wheezing
[2020-07-22 07:28] VITALS: BP 123/73
== END 2020-07-22 07:39 | disposition home or self-care (01) ==
LOC: ED 05:38
DX: J45.901 Unspecified asthma with (acute) exacerbation (principal); G43.909 Migraine, unspecified, not intractable, without status migrainosus; I10 Essential (primary) hypertension; Z79.899 Other long term (current) drug therapy; Z88.2 Allergy status to sulfonamides; Z88.8 Allergy status to other drugs, medicaments and biological substances; Z88.0 Allergy status to penicillin; Z91.040 Latex allergy status
CPT/HCPCS: 71045; 94640

== ENCOUNTER 2020-10-07 10:06 | Emergency (ER) | payer OTHER ==
[2020-10-07 10:15] VITALS: BP 148/91
[2020-10-07] MEDS ORDERED: dexAMETHasone 20 MG/5 ML VIAL IM ONE (10:27)
[2020-10-07] MEDS ORDERED: IPRATROPIUM 0.02% NEBU 2.5 ML IH ONE (10:27)
[2020-10-07] MEDS ORDERED: ALBUTEROL 2.5 MG/3 ML NEBU IH ONE ×2 (10:27→11:24)
--- NOTE | 2020-10-07 10:30 | Emergency Department Report ---
ED Asthma HPI - General Chief Complaint: Adult Asthma Stated Complaint: ASTHMA Time Seen by Provider: 10/07/20 10:26 Source: patient Mode of arrival: Ambulatory Limitations: No Limitations - History of Present Illness Initial Comments: 44-year-old -[place] male with a history of asthma presents to the emergency room stating that he has had a asthma attack for the last 2 days. Patient states he has been off his medication for at least a month. Patient denies any fever chills no nausea no vomiting. Patient does admit to a headache and states she has been taking Aleve and ibuprofen. He reports has an allergy to penicillin aspirin shellfish Tylenol and Reglan and latex. Patient states that he loves taking Percocet which helps with his headache. MD Complaint: "asthma attack" Onset/Timin -: days(s) - Related Data Home Medications Medication Instructions Recorded Confirmed Last Taken Albuterol Sulfate [Albuterol 0.63%] 0.63 mg IH TID PRN 01/23/13 01/23/13 12/16/12 Previous Rx's Medication Instructions Recorded Last Taken Type Albuterol Sulfate [Ventolin HFA] 2 puff IH Q4H PRN #1 hfa.aer.ad 01/23/13 Unknown Rx Azithromycin [Zithromax Z-LUCIA] 250 mg PO DAILY #6 tab 01/23/13 Unknown Rx Hydrocodone Bit/Homatrop Me-Br 5 ml PO Q4H PRN #80 ml 01/23/13 Unknown Rx [Hydrocodone-Homatropine Syr 5-1.5 mg/5ml] Prednisone 60 mg PO QDAY #15 tablet 01/23/13 Unknown Rx Cyclobenzaprine [Flexeril] 10 mg PO Q8H PRN #21 tablet 09/06/19 Unknown Rx Ibuprofen [Motrin] 800 mg PO Q8HR PRN #30 tablet 09/06/19 Unknown Rx Cyclobenzaprine [Flexeril] 10 mg PO TID PRN #30 tab 02/03/20 Unknown Rx Menthol/Camphor [[place] 1 applicatio TP QID PRN #1 tube 02/03/20 Unknown Rx Ointment] Naproxen 500 mg PO BID PRN #30 tablet 02/03/20 Unknown Rx Doxycycline Hyclate [Doxycycline 100 mg PO BID 7 Days #14 tab 04/10/20 Unknown Rx Hyclate TAB] Naproxen 500 mg PO BID PRN #20 tablet 04/10/20 Unknown Rx methOCARBAMOL [Robaxin TAB] 500 mg PO BID PRN #20 tab 04/10/20 Unknown Rx Albuterol Sulfate [Proventil Hfa] 6.7 gm IH TID PRN #1 hfa.aer.ad 07/22/20 Unknown Rx ALBUTEROL NEB's [Proventil 0.083% 5 mg IH TID PRN #1 box 10/07/20 Unknown Rx NEBS] Allergies Allergy/AdvReac Type Severity Reaction Status Date / Time acetaminophen [From Tylenol] Allergy Rash Verified 09/06/19 02:27 aspirin Allergy Unknown Verified 07/22/20 05:45 latex Allergy Rash Verified 09/06/19 02:27 methylprednisolone Allergy Unknown Verified 07/22/20 05:45 [From Solu-Medrol] Penicillins Allergy Rash Verified 01/23/13 06:03 shellfish derived Allergy Unknown Verified 09/06/19 02:27 ketorolac [From Toradol] AdvReac Headache Verified 04/10/20 03:51 metoclopramide [From Reglan] AdvReac Headache Verified 04/10/20 03:51 shrimp Allergy Vomiting Uncoded 01/23/13 06:03 ED Review of Systems ROS: Stated complaint: ASTHMA Other details as noted in HPI ED Past Medical Hx - Past Medical History Previous Medical History?: Yes Hx Hypertension: Yes Hx Headaches / Migraines: Yes Hx Asthma: Yes - Social History Smoking Status: Never Smoker Substance Use Type: None - Medications Home Medications: Home Medications Medication Instructions Recorded Confirmed Last Taken Type Albuterol Sulfate [Albuterol 0.63%] 0.63 mg IH TID PRN 01/23/13 01/23/13 12/16/12 History Albuterol Sulfate [Ventolin HFA] 2 puff IH Q4H PRN #1 hfa.aer.ad 01/23/13 Unknown Rx Azithromycin [Zithromax Z-LUCIA] 250 mg PO DAILY #6 tab 01/23/13 Unknown Rx Hydrocodone Bit/Homatrop Me-Br 5 ml PO Q4H PRN #80 ml 01/23/13 Unknown Rx [Hydrocodone-Homatropine Syr 5-1.5 mg/5ml] Prednisone 60 mg PO QDAY #15 tablet 01/23/13 Unknown Rx Cyclobenzaprine [Flexeril] 10 mg PO Q8H PRN #21 tablet 09/06/19 Unknown Rx Ibuprofen [Motrin] 800 mg PO Q8HR PRN #30 tablet 09/06/19 Unknown Rx Cyclobenzaprine [Flexeril] 10 mg PO TID PRN #30 tab 02/03/20 Unknown Rx Menthol/Camphor [[place] 1 applicatio TP QID PRN #1 tube 02/03/20 Unknown Rx Ointment] Naproxen 500 mg PO BID PRN #30 tablet 02/03/20 Unknown Rx Doxycycline Hyclate [Doxycycline 100 mg PO BID 7 Days #14 tab 04/10/20 Unknown Rx Hyclate TAB] Naproxen 500 mg PO BID PRN #20 tablet 04/10/20 Unknown Rx methOCARBAMOL [Robaxin TAB] 500 mg PO BID PRN #20 tab 04/10/20 Unknown Rx Albuterol Sulfate [Proventil Hfa] 6.7 gm IH TID PRN #1 hfa.aer.ad 07/22/20 Unknown Rx ALBUTEROL NEB's [Proventil 0.083% 5 mg IH TID PRN #1 box 10/07/20 Unknown Rx NEBS] ED Physical Exam - General Limitations: No Limitations General appearance: alert, in no apparent distress - Head Head exam: Present: atraumatic, normocephalic - Eye Eye exam: Present: normal appearance - ENT ENT exam: Present: normal exam, mucous membranes moist - Neck Neck exam: Present: full ROM - Respiratory Respiratory exam: Present: wheezes, rhonchi, prolonged expiratory - Cardiovascular Cardiovascular Exam: Present: tachycardia - Back Exam Back exam: Present: normal inspection, full ROM - Neurological Exam Neurological exam: Present: alert, oriented X3, normal gait - Psychiatric Psychiatric exam: Present: normal affect, normal mood - Skin Skin exam: Present: warm, dry, intact, normal color. Absent: rash ED Course Vital Signs 10/07/20 10/07/20 10/07/20 10:09 10:39 12:37 Temperature 98.2 F Pulse Rate 100 H 100 H Pulse Rate [ 96 H Anterior Bilateral Throughout] Respiratory 24 20 Rate Respiratory 20 Rate [Anterior Bilateral Throughout] Blood Pressure 148/91 O2 Sat by Pulse 96 97 Oximetry - Reevaluation(s) Reevaluation #1: 10/07/20 11:25 Patient has been reevaluated by this provider he still has coarse breath sounds with end expiratory wheeze greater on the left than right. Patient states he feels somewhat better. Is requesting something to eat. ED Medical Decision Making - Medical Decision Making 44-year-old -[place] male with a history of asthma presents to the emergency room stating that he has had a asthma attack for the last 2 days. Patient states he has been off his medication for at least a month. Patient denies any fever chills no nausea no vomiting. Patient does admit to a headache and states she has been taking Aleve and ibuprofen. He reports has an allergy to penicillin aspirin shellfish Tylenol and Reglan and latex. Patient states that he loves taking Percocet which helps with his headache. Respiratory therapist was called medications of albuterol and Atrovent and dexamethasone has been ordered. Ibuprofen 600 mg has been ordered for headache. Patient was reevaluated. Still having some coarse breath sounds left greater than right. Ordered another 5 mg albuterol and perform PT on his back. Patient is requesting for a sandwich. Critical care attestation.: If time is entered above; I have spent that time in minutes in the direct care of this critically ill patient, excluding procedure time. ED Disposition Clinical Impression: Asthma Disposition: DC-01 TO HOME OR SELFCARE Is pt being admited?: No Does the pt Need Aspirin: No Condition: Stable Instructions: Asthma Attack Prevention, Adult, Asthma (ED) Additional Instructions: Please administer treatments as needed for wheezing shortness of breath or cough. Is very important that you follow-up with a primary care doctor or clinic to continue with your medication for your asthma and management. Prescriptions: ALBUTEROL NEB's [Proventil 0.083% NEBS] 5 mg IH TID PRN #1 box PRN Reason: Wheezing Referrals: PRIMARY CARE, [Primary Care Provider] - 3-5 Days [facility] [Provider Group] - 3-5 Days
[2020-10-07] MEDS ORDERED: IBUPROFEN 600 MG TAB PO ONE (10:31)
== END 2020-10-07 12:37 | disposition home or self-care (01) ==
LOC: ED 10:06
DX: J45.909 Unspecified asthma, uncomplicated (principal); I10 Essential (primary) hypertension; G43.909 Migraine, unspecified, not intractable, without status migrainosus; Z98.890 Other specified postprocedural states; Z79.899 Other long term (current) drug therapy; Z88.6 Allergy status to analgesic agent; Z91.013 Allergy to seafood; Z88.8 Allergy status to other drugs, medicaments and biological substances; Z88.0 Allergy status to penicillin; Z91.040 Latex allergy status
CPT/HCPCS: 94640; 96372; 99283; J1100; 94644

== ENCOUNTER 2020-10-25 03:06 | Emergency (ER) | payer OTHER ==
[2020-10-25 03:32] VITALS: BP 121/83
--- NOTE | 2020-11-22 08:39 | ED Elopement Review ---
ED Pt Elopement review - Results review Lab results: I did not evaluate this patient. The patient eloped from the emergency department
== END 2020-10-25 09:00 | disposition left against medical advice (07) ==
LOC: ED 03:06
DX: R51.9 Headache, unspecified (principal); Z53.21 Procedure and treatment not carried out due to patient leaving prior to being seen by health care provider